=== PATIENT | male | born 1925 | race Caucasian/White ===

== ENCOUNTER 2016-07-19 16:58 | Inpatient (IN) | payer MEDICARE, OTHER ==
[~2016-07-19] VITALS: Ht 175.3 cm; Wt 68.9 kg
[2016-07-19] MEDS ORDERED: HALOPERIDOL LACTATE 5 MG/1 ML VIAL IM ONE (17:30)
[2016-07-19] MEDS ORDERED: LORAZEPAM 2 MG/1 ML VIAL IM ONE (17:30)
[2016-07-19] MEDS ORDERED: diphenhydrAMINE 50 MG/1 ML VIAL IM ONE (17:30)
--- NOTE | 2016-07-19 17:32 | NUR ---
PT IS AGGRIVATED UP ON ARRIVAL, AND BECOMING AGITATED W/ CARE AWARE.
--- NOTE | 2016-07-19 17:33 | NUR ---
SECURITY AT BEDSIDE FOR SAFETY, PT REFUSE TO GO BED.
[2016-07-19] MEDS ORDERED: HALOPERIDOL LACTATE 5 MG/1 ML VIAL ONE (17:41)
[2016-07-19] MEDS ORDERED: diphenhydrAMINE 50 MG/1 ML VIAL ONE (17:41)
[2016-07-19] MEDS ORDERED: LORAZEPAM 2 MG/1 ML VIAL ONE (17:41)
--- NOTE | 2016-07-19 17:42 | NUR ---
DR WALL AT THE BEDSIDE FOR EVAL AND EXAM.
[2016-07-19] MEDS ORDERED: PIPERACILLIN/TAZOBACTAM/D5W 50 ML IV ONE (17:58)
--- NOTE | 2016-07-19 18:18 | NUR ---
PT IS CALM AT THIS TIME, RESTING IN BED.
[2016-07-19] MEDS ORDERED: HYDR-552 PO (18:21)
[2016-07-19] MEDS ORDERED: ATOR10TA PO (18:21)
[2016-07-19] MEDS ORDERED: FAMO20TA8 PO (18:21)
[2016-07-19] MEDS ORDERED: METO-302 PO (18:21)
[2016-07-19] MEDS ORDERED: IPRA3AMP IH ×2 (18:21)
[2016-07-19] MEDS ORDERED: ACET-2154 PO (18:21)
[2016-07-19] MEDS ORDERED: INSU100V7 SQ (18:21)
[2016-07-19] MEDS ORDERED: BISA10SU8 RC (18:21)
[2016-07-19] MEDS ORDERED: FURO20TA4 PO (18:21)
[2016-07-19] MEDS ORDERED: QUET25TA PO (18:21)
[2016-07-19] MEDS ORDERED: LEVO75TA PO (18:21)
[2016-07-19] MEDS ORDERED: DOCU-170 PO (18:21)
[2016-07-19] MEDS ORDERED: DIPH50CA37 GT (18:33)
[2016-07-19] MEDS ORDERED: LACT10SO6 PO (18:33)
--- NOTE | 2016-07-19 18:47 | NUR ---
ОЛЬГА SINGH CALLED AND AWARE OF PT NEEDING PSYCH EVAL, ОЛЬГА STATES WILL COME TO EVALUATE PT AFTER MEDICAL CLEARANCE.
--- NOTE | 2016-07-19 18:51 | NUR ---
DINNER PROVIDED, PT HAS MODERATE APPETITE. 1 TO 1 SECURITY AT THE BEDSIDE FOR SAFETY.
[2016-07-19 18:53] LABS: BASOPHILS # (AUTO) 0.1 K/uL (0.0-0.2); BASOPHILS % (AUTO) 1.3 % (0.0-2.0); EOSINOPHILS # (AUTO) 0.2 K/uL (0.0-0.7); EOSINOPHILS % (AUTO) 3.1 % (0.0-7.0); HEMATOCRIT 40.6 % (40.0-50.0); HEMOGLOBIN 13.4 g/dL (14.0-18.0); LYMPHOCYTES % (AUTO) 12.3 % (20.5-51.5); MEAN CORPUSCULAR HEMOGLOBIN 30.3 uug (27.0-31.0); MEAN CORPUSCULAR HGB CONC 33 g/dL (32.0-37.0); MEAN CORPUSCULAR VOLUME 91.6 fL (82.0-92.0); MONOCYTES # (AUTO) 0.5 K/uL (0.1-1.30); MONOCYTES % (AUTO) 6.6 % (0.0-11.0); NEUTROPHILS # (AUTO) 6.1 K/uL (1.8-8.9); NEUTROPHILS % (AUTO) 76.7 % (38.5-71.5); PLATELET COUNT (AUTO) 283 K/uL (150-450); RED BLOOD CELL COUNT(AUTO) 4.44 MIL/uL (4.70-6.10); RED CELL DISTRIBUTION WIDTH 14.4 % (11.5-14.5); WHITE BLOOD COUNT (AUTO) 7.9 K/uL (4.0-11.2)
[2016-07-19] MEDS ORDERED: INSU100V9 (18:55)
[2016-07-19] MEDS ORDERED: BLOO-140 IN (18:55)
[2016-07-19] MEDS ORDERED: INSU100V28 (18:55)
[2016-07-19 19:01] LABS: CARBON DIOXIDE 32 mmol/L (21-32); CHLORIDE 101 mmol/L (98-107); POTASSIUM 5.3 mmol/L (3.5-5.1); SODIUM SERUM 137 mmol/L (136-145); UREA NITROGEN, BLOOD 30 mg/dL (7-18)
[2016-07-19 19:07] LABS: AMMONIA < 10 umol/L (11-32); CREATININE 1.5 mg/dL (0.6-1.3); GLUCOSE 317 mg/dL (74-106)
[2016-07-19 19:11] LABS: ETHANOL < 3 MG/DL (0-0)
[2016-07-19 19:18] LABS: ACETAMINOPHEN < 2.0 ug/mL (10-30); ALANINE AMINOTRANSFERASE 15 U/L (16-63); ALKALINE PHOSPHATASE 110 U/L (50-136); ASPARTATE AMINOTRANSFERASE 21 U/L (15-37); BILIRUBIN,DIRECT 0.2 mg/dL (0.0-0.2); BILIRUBIN,TOTAL 0.5 mg/dL (0.2-1.0)
[2016-07-19 19:20] LABS: THYROID STIMULATING HORMONE 5.392 mIU/mL (0.358-3.740)
[2016-07-19] MEDS ORDERED: IV NORMAL SALINE 500 ML IV ONE (19:26)
--- NOTE | 2016-07-19 19:35 | NUR ---
RECIEVED PATIENT IN BED SLEEPING WITH INFORMATION SERVICES CONSULTANT IN ROOM.
[2016-07-19] MEDS ORDERED: MAG HYDROX/AL HYDROX/SIMETH 30 ML LIQUID UDC PO PRN (21:00)
[2016-07-19] MEDS ORDERED: ACETAMINOPHEN 325 MG TABLET PO PRN ×2 (21:00→21:45)
[2016-07-19] MEDS ORDERED: MAGNESIUM HYDROXIDE 30 ML LIQUID UDC PO PRN (21:00)
[2016-07-19 21:36] VITALS: BP 150/74
[2016-07-19] MEDS ORDERED: HYDROCODONE/APAP 5-325MG TABLET PO PRN (21:45)
[2016-07-19] MEDS ORDERED: BISACODYL 10 MG SUPP.RECT RC PRN (21:45)
[2016-07-19] MEDS ORDERED: DEXTROSE 50% 50 ML DISP.SYRIN IV PRN (22:00)
[2016-07-19] MEDS ORDERED: Z GUARD REMEDY PASTE 57 GM TUBE TOP PRN (22:00)
[2016-07-19] MEDS: BLOOD SUGAR DIAGNOSTIC 1 EACH STRIP VI SCH (22:08)
[2016-07-19] MEDS: INSULIN REGULAR, HUMAN 300 UNITS/3 ML VIAL SQ PRN (22:11)
--- NOTE | 2016-07-19 23:33 | NUR ---
GPS: Admitted to unit earlier a 89 yr.old male under the care of in fair condition. Pt.is on a 72 hour hold for DTO/GD. Pt.was agitated,attempted to strike out at staff and other residents at [facility]. Pt.also was wandering into other residents rooms ,per hold. Pt.is alert to self only. Poor insight to present situation. Calm and cooperative at this time. On O2 inhalation via n/c for SOB mgmt due to COPD. In no acute resp.distress noted. Showered then placed in his room with sitter at bedside for safety. Fall precautions observed. Will continue to monitor.
--- NOTE | 2016-07-20 00:02 | NUR ---
GPS: PATIENT UNABLE TO SLEEP. RESTORIL 7.5 MG PO GIVEN. Addendum: 07/21/16 at 0459 by USAMA LANDRUM LVN RESTORIL 7.5 MG GIVEN ON 07/21/2016. NOT ON 07/20/2016.
[2016-07-20] MEDS ORDERED: Z GUARD REMEDY PASTE 57 GM TUBE TOP PRN (01:15)
[2016-07-20] MEDS: BLOOD SUGAR DIAGNOSTIC 1 EACH STRIP VI SCH ×4 (06:50→20:12)
[2016-07-20 07:30] VITALS: BP 164/85
[2016-07-20 07:53] LABS: BASOPHILS # (AUTO) 0.1 K/uL (0.0-0.2); BASOPHILS % (AUTO) 0.6 % (0.0-2.0); EOSINOPHILS # (AUTO) 0.3 K/uL (0.0-0.7); HEMATOCRIT 39.6 % (40.0-50.0); LYMPHOCYTES # (AUTO) 1.4 K/uL (0.8-4.8); LYMPHOCYTES % (AUTO) 16.1 % (20.5-51.5); MEAN CORPUSCULAR HEMOGLOBIN 30.2 uug (27.0-31.0); MEAN CORPUSCULAR HGB CONC 33 g/dL (32.0-37.0); MONOCYTES # (AUTO) 0.5 K/uL (0.1-1.30); NEUTROPHILS # (AUTO) 6.3 K/uL (1.8-8.9); NEUTROPHILS % (AUTO) 73.3 % (38.5-71.5); PLATELET COUNT (AUTO) 282 K/uL (150-450); RED BLOOD CELL COUNT(AUTO) 4.31 MIL/uL (4.70-6.10); RED CELL DISTRIBUTION WIDTH 14.5 % (11.5-14.5); WHITE BLOOD COUNT (AUTO) 8.6 K/uL (4.0-11.2)
[2016-07-20 08:24] LABS: BILIRUBIN,TOTAL 0.8 mg/dL (0.2-1.0); CALCIUM 8.3 mg/dL (8.5-10.1); MAGNESIUM 1.6 mg/dL (1.8-2.4); PHOSPHOROUS 3.3 mg/dL (2.5-4.9); POTASSIUM 4.6 mmol/L (3.5-5.1); TOTAL PROTEIN, SERUM 7.8 g/dL (6.4-8.2)
[2016-07-20 08:25] LABS: CREATININE 1.6 mg/dL (0.6-1.3)
[2016-07-20] MEDS: LEVOTHYROXINE SODIUM 75 MCG TABLET PO SCH (08:38)
[2016-07-20] MEDS: FAMOTIDINE 20 MG TABLET PO SCH (08:39)
[2016-07-20] MEDS: DOCUSATE SODIUM 100 MG CAPSULE PO SCH ×2 (08:39→17:12)
[2016-07-20] MEDS: Z GUARD REMEDY PASTE 57 GM TUBE TOP SCH ×2 (08:58→20:12)
[2016-07-20] MEDS ORDERED: Z GUARD REMEDY PASTE 57 GM TUBE TOP SCH (09:00)
[2016-07-20] MEDS: INSULIN DETEMIR 300 UNIT/3 ML CARTRIDGE SQ SCH (09:01)
[2016-07-20] MEDS: INSULIN REGULAR, HUMAN 300 UNIT/3 ML VIAL SQ PRN ×2 (12:08→17:46)
[2016-07-20 12:25] VITALS: BP 128/63
--- NOTE | 2016-07-20 12:56 | NUR ---
Initial discharge instructions: The patient resides at [facility] [[address] [place] [address] ]. Spoke with Daksha at the facility who stated that they will accept the patient back when stable. Spoke with the patient's family [Cheng-son /Christel ] who would like for the patient to return to the facility upon discharge. SS will soeak with patient, family, and MD regarding most appropriate discharge plan. SS will form a safe and proper discharge.
[2016-07-20] MEDS: LORAZEPAM 1 MG TABLET PO PRN ×2 (14:28→20:59)
[2016-07-20] MEDS ORDERED: MAGNESIUM OXIDE 400 MG TABLET PO ONE (14:45)
[2016-07-20 16:00] VITALS: BP 108/62
[2016-07-20] MEDS: QUETIAPINE FUMARATE 25 MG TABLET PO SCH (17:12)
--- NOTE | 2016-07-20 19:46 | NUR ---
Last note entered on 07/20/16 @ 19:27 was done in error. Addendum: 07/20/16 at 1947 by JORDAN WILLAMS REC Amended: Links added.
--- NOTE | 2016-07-20 19:55 | NUR ---
GPS/RN- Dr Mijares current provider for patient outside of Hospital. Dr Dela Cruz informed. spoke with providers, patient to continue under Dr Mijares. Dr Dela Cruz aware.
[2016-07-20 20:00] VITALS: BP 144/78
[2016-07-20] MEDS: ATORVASTATIN 10 MG TABLET PO SCH (20:11)
--- NOTE | 2016-07-20 21:05 | NUR ---
GPS:PATIENT YELLING STATED I WANT GO HOME. ATIVAN 0.25 MG PO GIVEN FOR AGITATION.CONTINUE ON 1:1 SITTER @ BEDSIDE FOR SAFETY.
--- NOTE | 2016-07-20 22:04 | NUR ---
GPS: PATIENT IS CALM NOW. PRN EFFECTIVE.
[2016-07-21] MEDS: TEMAZEPAM 7.5 MG CAPSULE PO PRN ×2 (00:01→20:28)
[2016-07-21] MEDS: LEVOTHYROXINE SODIUM 75 MCG TABLET PO SCH (06:10)
--- NOTE | 2016-07-21 06:58 | NUR ---
GPS: REMAIN UNCOOPERATIVE WITH CARE.COMPLIANT WITH MEDS.BLOOD SUGAR 171 MG/DL THIS MORNING.SLEPT 6:30 HRS THROUGH THE NIGHT. CONTINUE ON 1:1 SITTER @ BEDSIDE FOR SAFETY.CONTINUE PLAN OF CARE.
[2016-07-21] MEDS: BLOOD SUGAR DIAGNOSTIC 1 EACH STRIP VI SCH ×4 (07:00→20:03)
[2016-07-21 07:30] VITALS: BP 151/85
[2016-07-21] MEDS: QUETIAPINE FUMARATE 25 MG TABLET PO SCH ×2 (08:11→17:25)
[2016-07-21] MEDS: DOCUSATE SODIUM 100 MG CAPSULE PO SCH ×2 (08:11→17:24)
[2016-07-21] MEDS: FAMOTIDINE 20 MG TABLET PO SCH (08:11)
[2016-07-21] MEDS: INSULIN DETEMIR 300 UNIT/3 ML CARTRIDGE SQ SCH (08:19)
[2016-07-21] MEDS: INSULIN REGULAR, HUMAN 300 UNIT/3 ML VIAL SQ PRN ×2 (08:19→12:22)
[2016-07-21] MEDS: Z GUARD REMEDY PASTE 57 GM TUBE TOP SCH ×2 (08:25→20:03)
[2016-07-21] MEDS ORDERED: LORAZEPAM 1 MG TABLET PO ONE (13:45)
[2016-07-21 15:39] LABS: ALBUMIN 2.8 g/dL (3.4-5.0); BILIRUBIN,TOTAL 0.5 mg/dL (0.2-1.0); MAGNESIUM 1.8 mg/dL (1.8-2.4); PHOSPHOROUS 3.2 mg/dL (2.5-4.9); POTASSIUM 5.1 mmol/L (3.5-5.1); TOTAL PROTEIN, SERUM 7.4 g/dL (6.4-8.2)
[2016-07-21 15:56] LABS: CREATININE 1.6 mg/dL (0.6-1.3)
[2016-07-21 16:00] VITALS: BP 130/67
[2016-07-21 16:56] LABS: EOSINOPHILS # (AUTO) 0.4 K/uL (0.0-0.7); HEMATOCRIT 39.9 % (39-51); HEMOGLOBIN 13.1 G/DL (13.5-17.5); LYMPHOCYTES # (AUTO) 1.4 K/uL (0.8-4.8); MEAN CORPUSCULAR HEMOGLOBIN 30.6 UUG (26.0-33.0); MEAN CORPUSCULAR HGB CONC 33 g/dL (31.0-36.0); MEAN CORPUSCULAR VOLUME 92.8 FL (80-96); MONOCYTES # (AUTO) 0.5 K/uL (0.1-1.30); NEUTROPHILS # (AUTO) 5.3 K/uL (1.8-8.9); RED CELL DISTRIBUTION WIDTH 14.9 % (11.5-15.0); WHITE BLOOD COUNT (AUTO) 7.8 K/UL (4.3-11.0)
[2016-07-21 16:57] LABS: BASOPHILS % (AUTO) 0.4 % (0.0-2.0); EOSINOPHILS % (AUTO) 4.9 % (0.0-7.0); LYMPHOCYTES % (AUTO) 18.7 % (20.5-51.5); MONOCYTES % (AUTO) 7.1 % (0.0-11.0); NEUTROPHILS % (AUTO) 68.9 % (43.0-81.0); PLATELET COUNT (AUTO) 289 K/UL (150-450)
[2016-07-21] MEDS: LORAZEPAM 1 MG TABLET PO PRN (18:04)
[2016-07-21 20:00] VITALS: BP 116/62
[2016-07-21] MEDS: ATORVASTATIN 10 MG TABLET PO SCH (20:02)
[2016-07-21] MEDS: INSULIN REGULAR, HUMAN 300 UNITS/3 ML VIAL SQ PRN (20:27)
[2016-07-21] MEDS ORDERED: GABAPENTIN 100 MG CAPSULE PO SCH (21:00)
[2016-07-22] MEDS: QUETIAPINE FUMARATE 25 MG TABLET PO PRN (00:42)
--- NOTE | 2016-07-22 00:42 | NUR ---
GPS: Pt.is awake at this time. Angry,agitated and yelling. Confused and disoriented. Unable to be re-directed. Seroquel 12.5mg given PO. Will monitor effectiveness. Safe environment provided. Denies need to go to the bathroom. Diaper was dry at this time.
--- NOTE | 2016-07-22 03:59 | NUR ---
GPS: Pt.continues to yell/scream intermittently. Confused,disoriented. easily agitated when approached. Demanding staff to take him home at this time. Constant re-direction provided. Also trying to get out of bed numerous times. Poor safety awareness. 1:1 sitter for safety. Will continue to monitor. Denies any pain when asked.
[2016-07-22] MEDS: LEVOTHYROXINE SODIUM 75 MCG TABLET PO SCH (06:11)
[2016-07-22] MEDS: BLOOD SUGAR DIAGNOSTIC 1 EACH STRIP VI SCH ×4 (06:37→20:15)
[2016-07-22 07:18] LABS: ALBUMIN 2.9 g/dL (3.4-5.0); BILIRUBIN,TOTAL 0.7 mg/dL (0.2-1.0); CALCIUM 8.8 mg/dL (8.5-10.1); MAGNESIUM 1.6 mg/dL (1.8-2.4); PHOSPHOROUS 3.6 mg/dL (2.5-4.9); POTASSIUM 4.9 mmol/L (3.5-5.1); TOTAL PROTEIN, SERUM 7.2 g/dL (6.4-8.2)
[2016-07-22 07:19] LABS: CREATININE 1.9 mg/dL (0.6-1.3)
[2016-07-22 07:30] VITALS: BP 130/79
[2016-07-22 07:30] LABS: HEMATOCRIT 37.9 % (40.0-50.0); HEMOGLOBIN 12.6 g/dL (14.0-18.0); MEAN CORPUSCULAR HEMOGLOBIN 30.8 uug (27.0-31.0); MEAN CORPUSCULAR HGB CONC 33 g/dL (32.0-37.0); MEAN CORPUSCULAR VOLUME 92.7 fL (82.0-92.0); PLATELET COUNT (AUTO) 239 K/uL (150-450); RED BLOOD CELL COUNT(AUTO) 4.09 MIL/uL (4.70-6.10); RED CELL DISTRIBUTION WIDTH 14.4 % (11.5-14.5); WHITE BLOOD COUNT (AUTO) 8.8 K/uL (4.0-11.2)
[2016-07-22] MEDS: DOCUSATE SODIUM 100 MG CAPSULE PO SCH ×2 (08:17→17:26)
[2016-07-22] MEDS: FAMOTIDINE 20 MG TABLET PO SCH (08:18)
[2016-07-22] MEDS: QUETIAPINE FUMARATE 25 MG TABLET PO SCH ×3 (08:18→17:26)
[2016-07-22] MEDS: INSULIN DETEMIR 300 UNIT/3 ML CARTRIDGE SQ SCH (08:25)
[2016-07-22] MEDS: INSULIN REGULAR, HUMAN 300 UNIT/3 ML VIAL SQ PRN ×2 (08:27→17:26)
[2016-07-22] MEDS: Z GUARD REMEDY PASTE 57 GM TUBE TOP SCH ×2 (08:31→20:18)
[2016-07-22 11:17] LABS: BASOPHILS % (AUTO) 0.4 % (0.0-2.0); EOSINOPHILS % (AUTO) 3.4 % (0.0-7.0); LYMPHOCYTES # (AUTO) 1.2 K/uL (0.8-4.8); LYMPHOCYTES % (AUTO) 13.9 % (20.5-51.5); MONOCYTES % (AUTO) 6.3 % (0.0-11.0); NEUTROPHILS # (AUTO) 6.7 K/uL (1.8-8.9)
[2016-07-22 11:18] LABS: EOSINOPHILS # (AUTO) 0.3 K/uL (0.0-0.7); MONOCYTES # (AUTO) 0.6 K/uL (0.1-1.30)
[2016-07-22] MEDS ORDERED: MAGNESIUM OXIDE 400 MG TABLET PO ONE (14:00)
[2016-07-22] MEDS: GABAPENTIN 100 MG CAPSULE PO SCH ×2 (14:07→17:26)
[2016-07-22 15:43] VITALS: BP 131/60
[2016-07-22 20:09] VITALS: BP 130/59
[2016-07-22 20:27] LABS: *BILIRUBIN,URIN NEGATIVE (NEGATIVE); *BLOOD, URINE Trace-lysed (NEGATIVE); *COLOR,URINE YELLOW (YELLOW); *KETONES,URINE NEGATIVE (NEGATIVE); *PROTEIN,URINE TRACE (NEGATIVE); *UROBILINOGEN,URINE 0.2 E.U./dl (NORMAL); LEUKOCYTE ESTERASE ,URINE 1+ (NEGATIVE); UGLUCOSE NEGATIVE (NEGATIVE)
[2016-07-22] MEDS: ATORVASTATIN 10 MG TABLET PO SCH (20:27)
[2016-07-22 20:52] LABS: *URINE TOTAL PROTEIN RANDOM 20.8 mg/dL (<150/24HR)
[2016-07-22 21:09] LABS: *CLARITY,URINE HAZY (CLEAR); NITRITE, URINE POSITIVE (NEGATIVE)
[2016-07-22 21:47] LABS: BACTERIA,URINE MODERATE /HPF (NONE SEEN); RBC,URINE 0-3 /HPF (0-3); SQUAMOUS EPITHELIAL CELL,UR MODERATE /HPF (NONE SEEN)
[2016-07-22] MEDS: TEMAZEPAM 7.5 MG CAPSULE PO PRN (22:10)
[2016-07-23] MEDS: LEVOTHYROXINE SODIUM 88 MCG TABLET PO SCH (06:25)
[2016-07-23 06:30] LABS: ALBUMIN 2.8 g/dL (3.4-5.0); BILIRUBIN,TOTAL 0.7 mg/dL (0.2-1.0); CALCIUM 8.6 mg/dL (8.5-10.1); MAGNESIUM 1.9 mg/dL (1.8-2.4); PHOSPHOROUS 3.6 mg/dL (2.5-4.9); POTASSIUM 4.4 mmol/L (3.5-5.1); TOTAL PROTEIN, SERUM 7.2 g/dL (6.4-8.2)
[2016-07-23] MEDS: BLOOD SUGAR DIAGNOSTIC 1 EACH STRIP VI SCH ×4 (06:39→21:00)
[2016-07-23 06:41] LABS: CREATININE 1.7 mg/dL (0.6-1.3)
[2016-07-23 06:55] LABS: HEMATOCRIT 38.3 % (40.0-50.0); HEMOGLOBIN 12.4 g/dL (14.0-18.0); MEAN CORPUSCULAR HEMOGLOBIN 30.3 uug (27.0-31.0); MEAN CORPUSCULAR HGB CONC 33 g/dL (32.0-37.0); MEAN CORPUSCULAR VOLUME 93.4 fL (82.0-92.0); PLATELET COUNT (AUTO) 270 K/uL (150-450); RED BLOOD CELL COUNT(AUTO) 4.11 MIL/uL (4.70-6.10); RED CELL DISTRIBUTION WIDTH 14.4 % (11.5-14.5); WHITE BLOOD COUNT (AUTO) 7.5 K/uL (4.0-11.2)
[2016-07-23] MEDS ORDERED: LEVOTHYROXINE SODIUM 75 MCG TABLET PO SCH (07:00)
[2016-07-23 07:30] VITALS: BP 143/67
[2016-07-23] MEDS: INSULIN REGULAR, HUMAN 300 UNIT/3 ML VIAL SQ PRN ×3 (07:50→18:54)
[2016-07-23] MEDS: QUETIAPINE FUMARATE 25 MG TABLET PO SCH ×3 (09:00→17:04)
[2016-07-23] MEDS: DOCUSATE SODIUM 100 MG CAPSULE PO SCH ×2 (09:00→17:04)
[2016-07-23] MEDS: GABAPENTIN 100 MG CAPSULE PO SCH ×3 (09:00→17:04)
[2016-07-23] MEDS: FAMOTIDINE 20 MG TABLET PO SCH (09:00)
[2016-07-23] MEDS: INSULIN DETEMIR 300 UNIT/3 ML CARTRIDGE SQ SCH (11:04)
[2016-07-23] MEDS: Z GUARD REMEDY PASTE 57 GM TUBE TOP SCH ×2 (11:07→20:59)
[2016-07-23 11:15] LABS: LYMPHOCYTES % (AUTO) 14.3 % (20.5-51.5); NEUTROPHILS % (AUTO) 73.3 % (38.5-71.5)
[2016-07-23 11:16] LABS: BASOPHILS % (AUTO) 0.6 % (0.0-2.0); MONOCYTES % (AUTO) 6.8 % (0.0-11.0)
[2016-07-23 16:00] VITALS: BP 109/70
--- NOTE | 2016-07-23 19:05 | NUR ---
PT REMAINS ON 1:1. PT IS CONFUSED, DISORIENTATED, NEEDS FREQUENT REDIRECTION. HELP 1700 INSULIN, DID NOT EAT DINNER.
[2016-07-23 20:00] VITALS: BP 140/70
[2016-07-23] MEDS: ATORVASTATIN 10 MG TABLET PO SCH (20:56)
[2016-07-24] MEDS: LEVOTHYROXINE SODIUM 88 MCG TABLET PO SCH (06:34)
[2016-07-24] MEDS: BLOOD SUGAR DIAGNOSTIC 1 EACH STRIP VI SCH ×4 (06:34→20:20)
[2016-07-24 07:30] VITALS: BP 136/68
[2016-07-24] MEDS: FAMOTIDINE 20 MG TABLET PO SCH (08:32)
[2016-07-24] MEDS: GABAPENTIN 100 MG CAPSULE PO SCH ×3 (08:32→17:10)
[2016-07-24] MEDS: QUETIAPINE FUMARATE 25 MG TABLET PO SCH ×3 (08:32→17:11)
[2016-07-24] MEDS: DOCUSATE SODIUM 100 MG CAPSULE PO SCH ×2 (08:32→17:10)
[2016-07-24] MEDS: INSULIN DETEMIR 300 UNIT/3 ML CARTRIDGE SQ SCH (08:33)
[2016-07-24] MEDS: Z GUARD REMEDY PASTE 57 GM TUBE TOP SCH ×2 (08:34→20:21)
[2016-07-24] MEDS: INSULIN REGULAR, HUMAN 300 UNIT/3 ML VIAL SQ PRN (17:12)
[2016-07-24 17:20] VITALS: BP 143/78
[2016-07-24] MEDS: ATORVASTATIN 10 MG TABLET PO SCH (20:14)
[2016-07-24] MEDS: QUETIAPINE FUMARATE 25 MG TABLET PO PRN (20:15)
[2016-07-24] MEDS: INSULIN REGULAR, HUMAN 300 UNITS/3 ML VIAL SQ PRN (20:36)
--- NOTE | 2016-07-24 21:12 | NUR ---
PATIENT RECEIVED IN BED AWAKE. PATIENT ALERT/ORIENTED X2, PATIENT IS EASILY AGITATED, EASILY IRRITABLE PATIENT IS UNPREDICTABLE. PATIENT REQUIRES FREQUENT REDIRECTION AND PROMPTING, HAS PERIODS OF YELLING WHEN NEEDS ARE NOT MET WANTS INSTANT GRATIFICATION. NO AGGRESSIVE OR COMBATIVE BEHAVIOR NOTED, HOWEVER DURING PATIENT CARE IS KNOWN TO STRIKE OUT. POOR INSIGHT, POOR JUDGEMENT, CONTINUE WITH CURRENT TREATMENT PLAN. HS BLOOD SUGAR 235MG/DL INSULIN GIVEN PER SLIDING SCALE 4 UNITS, PATIENT COMPLAINT WITH HS MEDICATION. BED IN LOWEST POSITION, BED LOCKED, AND BED ALARM ON WHILE IN BED. PATIENT DENIES PAIN AT THIS TIME, WILL CONTINUE TO MONITOR, NO FACIAL GRIMACING NOTED. PATIENT REMAINS WITH A 1:1 SITTER FOR SAFETY.
[2016-07-24] MEDS: TEMAZEPAM 7.5 MG CAPSULE PO PRN (22:13)
[2016-07-24 22:36] VITALS: BP 116/61
[2016-07-25] MEDS: LEVOTHYROXINE SODIUM 88 MCG TABLET PO SCH (06:28)
[2016-07-25] MEDS: BLOOD SUGAR DIAGNOSTIC 1 EACH STRIP VI SCH ×4 (06:38→20:10)
[2016-07-25 08:00] VITALS: BP 98/52
[2016-07-25] MEDS: DOCUSATE SODIUM 100 MG CAPSULE PO SCH ×2 (08:06→16:08)
[2016-07-25] MEDS: QUETIAPINE FUMARATE 25 MG TABLET PO SCH ×3 (08:06→16:08)
[2016-07-25] MEDS: FAMOTIDINE 20 MG TABLET PO SCH (08:06)
[2016-07-25 08:07] LABS: CALCIUM 8.7 mg/dL (8.5-10.1); MAGNESIUM 2.3 mg/dL (1.8-2.4); PHOSPHOROUS 3.3 mg/dL (2.5-4.9); POTASSIUM 5.5 mmol/L (3.5-5.1)
[2016-07-25] MEDS: GABAPENTIN 100 MG CAPSULE PO SCH ×2 (08:07→12:08)
[2016-07-25] MEDS: INSULIN DETEMIR 300 UNIT/3 ML CARTRIDGE SQ SCH (08:08)
[2016-07-25] MEDS: Z GUARD REMEDY PASTE 57 GM TUBE TOP SCH ×2 (08:09→20:36)
[2016-07-25 08:12] LABS: CREATININE 1.7 mg/dL (0.6-1.3)
[2016-07-25 08:41] LABS: HEMATOCRIT 41.2 % (40.0-50.0); HEMOGLOBIN 13.1 g/dL (14.0-18.0); MEAN CORPUSCULAR HEMOGLOBIN 29.7 uug (27.0-31.0); MEAN CORPUSCULAR HGB CONC 32 g/dL (32.0-37.0); MEAN CORPUSCULAR VOLUME 93.4 fL (82.0-92.0); PLATELET COUNT (AUTO) 269 K/uL (150-450); RED BLOOD CELL COUNT(AUTO) 4.42 MIL/uL (4.70-6.10); RED CELL DISTRIBUTION WIDTH 14.4 % (11.5-14.5)
[2016-07-25 08:58] LABS: WHITE BLOOD COUNT (AUTO) 9.7 K/uL (4.0-11.2)
[2016-07-25 11:07] LABS: BASOPHILS % (MANUAL) 3 % (0-2); EOSINOPHILS % (MANUAL) 3 % (0-8); LYMPHOCYTES % (MANUAL) 16 % (20-40); METAMYELOCYTES % 1 % (0-1); MONOCYTES % (MANUAL) 6 % (2-10); NEUTROPHILS % (MANUAL) 71 % (42-75); PLATELET ESTIMATE ADEQUATE
[2016-07-25 11:08] LABS: ANISOCYTOSIS 1+
[2016-07-25] MEDS: INSULIN REGULAR, HUMAN 300 UNITS/3 ML VIAL SQ PRN ×2 (12:07→20:25)
[2016-07-25] MEDS: GABAPENTIN 300 MG CAPSULE PO SCH ×2 (12:18→16:08)
[2016-07-25] MEDS ORDERED: GABAPENTIN 100 MG CAPSULE PO SCH (13:00)
[2016-07-25] MEDS: LORAZEPAM 1 MG TABLET PO PRN (14:00)
[2016-07-25] MEDS: INSULIN REGULAR, HUMAN 300 UNIT/3 ML VIAL SQ PRN (16:15)
[2016-07-25 16:41] VITALS: BP 124/63
[2016-07-25] MEDS: ATORVASTATIN 10 MG TABLET PO SCH (20:00)
[2016-07-25] MEDS: QUETIAPINE FUMARATE 25 MG TABLET PO PRN (20:00)
[2016-07-25 20:15] VITALS: BP 136/60
--- NOTE | 2016-07-25 21:24 | NUR ---
PATIENT RECEIVED IN BED AWAKE. PATIENT ALERT/ORIENTED X2, PATIENT IS EASILY AGITATED, EASILY IRRITABLE PATIENT IS UNPREDICATABLE. PATIENT REQUIRES FREQUENT REDIRECTION AND PROMPTING, HAS PERIODS OF YELLING WHEN NEEDS ARE NOT MET WANTS INSTANT GRATIFICATION. NO AGGRESSIVE OR COMBATIVE BEHAVIOR NOTED, HOWEVER DURING PATIENT CARE IS KNOWN TO STRIKE OUT. POOR INSIGHT, POOR JUDGEMENT, CONTINUE WITH CURRENT TREATMENT PLAN. HS BLOOD SUGAR 229 MG/DL INSULIN GIVEN PER SLIDING SCALE 4 UNITS, PATIENT COMPLAINT WITH HS MEDICATION. BED IN LOWEST POSITION, BED LOCKED, AND BED ALARM ON WHILE IN BED. PATIENT DENIES PAIN AT THIS TIME, WILL CONTINUE TO MONITOR, NO FACIAL GRIMACING NOTED. PATIENT REMAINS WITH A 1:1 SITTER FOR SAFETY.
[2016-07-25] MEDS: TEMAZEPAM 7.5 MG CAPSULE PO PRN (22:06)
[2016-07-26 06:06] LABS: A/G RATIO 0.9 (0.7-1.7); ALPHA-1-GLOBULIN 0.2 g/dL (0.0-0.4); ALPHA-2-GLOBULIN 0.8 g/dL (0.4-1.0); BETA GLOBULIN 0.8 g/dL (0.7-1.3); GAMMA GLOBULIN 1.6 g/dL (0.4-1.8); GLOBULIN, TOTAL 3.4 g/dL (2.2-3.9); M-SPIKE Not Observed g/dL (Not Observed)
[2016-07-26] MEDS: BLOOD SUGAR DIAGNOSTIC 1 EACH STRIP VI SCH ×4 (06:39→21:04)
[2016-07-26] MEDS: LEVOTHYROXINE SODIUM 88 MCG TABLET PO SCH (06:39)
[2016-07-26 07:30] VITALS: BP 107/65
[2016-07-26] MEDS: DOCUSATE SODIUM 100 MG CAPSULE PO SCH ×2 (09:00→16:42)
[2016-07-26] MEDS: GABAPENTIN 300 MG CAPSULE PO SCH ×2 (09:00→13:00)
[2016-07-26] MEDS: FAMOTIDINE 20 MG TABLET PO SCH (09:00)
[2016-07-26] MEDS: QUETIAPINE FUMARATE 25 MG TABLET PO SCH ×2 (09:00→13:00)
[2016-07-26] MEDS: INSULIN DETEMIR 300 UNIT/3 ML CARTRIDGE SQ SCH (09:00)
[2016-07-26] MEDS: Z GUARD REMEDY PASTE 57 GM TUBE TOP SCH ×2 (10:18→21:03)
[2016-07-26 12:08] LABS: VIT D, 25-HYDROXY 22.6 ng/mL (30.0-100.0)
[2016-07-26 14:12] LABS: PTH, INTACT 85 pg/mL (15-65)
[2016-07-26] MEDS: GABAPENTIN 100 MG CAPSULE PO SCH ×2 (16:42→21:03)
[2016-07-26 16:48] VITALS: BP 134/73
[2016-07-26] MEDS ORDERED: QUETIAPINE FUMARATE 25 MG TABLET PO SCH (17:00)
[2016-07-26] MEDS ORDERED: GABAPENTIN 300 MG CAPSULE PO SCH (17:00)
[2016-07-26 20:33] VITALS: BP 153/73
[2016-07-26] MEDS: ATORVASTATIN 10 MG TABLET PO SCH (21:03)
[2016-07-26] MEDS: OLANZAPINE 2.5 MG TABLET PO SCH (21:03)
[2016-07-26] MEDS: INSULIN REGULAR, HUMAN 300 UNITS/3 ML VIAL SQ PRN (21:09)
[2016-07-27] MEDS: BLOOD SUGAR DIAGNOSTIC 1 EACH STRIP VI SCH ×4 (06:30→20:05)
[2016-07-27] MEDS: LEVOTHYROXINE SODIUM 88 MCG TABLET PO SCH (06:30)
[2016-07-27 07:30] VITALS: BP 155/87
[2016-07-27] MEDS: DOCUSATE SODIUM 100 MG CAPSULE PO SCH ×2 (09:11→17:31)
[2016-07-27] MEDS: METOPROLOL TARTRATE 25 MG TABLET PO SCH ×2 (09:11→20:07)
[2016-07-27] MEDS: FAMOTIDINE 20 MG TABLET PO SCH (09:11)
[2016-07-27] MEDS: GABAPENTIN 100 MG CAPSULE PO SCH ×2 (09:11→20:06)
[2016-07-27] MEDS: Z GUARD REMEDY PASTE 57 GM TUBE TOP SCH ×2 (09:12→20:08)
[2016-07-27] MEDS: INSULIN DETEMIR 300 UNIT/3 ML CARTRIDGE SQ SCH (09:47)
[2016-07-27] MEDS: INSULIN REGULAR, HUMAN 300 UNIT/3 ML VIAL SQ PRN ×2 (09:48→12:16)
[2016-07-27 12:20] LABS: CALCITRIOL VIT D,1,25 DIHYDROX 14.1 pg/mL (19.9-79.3)
--- NOTE | 2016-07-27 14:21 | NUR ---
ECHO: PT REFUSED ECHOCARDIOGRAM. EXPLAINED BENEFITS, STILL REFUSED.
[2016-07-27 16:00] VITALS: BP 131/60
[2016-07-27] MEDS: ATORVASTATIN 10 MG TABLET PO SCH (20:05)
[2016-07-27] MEDS: OLANZAPINE 2.5 MG TABLET PO SCH (20:07)
[2016-07-27] MEDS: INSULIN REGULAR, HUMAN 300 UNITS/3 ML VIAL SQ PRN (20:11)
[2016-07-27 20:27] VITALS: BP 135/60
[2016-07-27] MEDS: TEMAZEPAM 7.5 MG CAPSULE PO PRN (22:20)
[2016-07-28 01:33] LABS: *BILIRUBIN,URIN NEGATIVE (NEGATIVE); *BLOOD, URINE Trace-intact (NEGATIVE); *CLARITY,URINE SLIGHTLY CLOUDY (CLEAR); *COLOR,URINE YELLOW (YELLOW); *KETONES,URINE NEGATIVE (NEGATIVE); *PROTEIN,URINE 2+ (NEGATIVE); *UROBILINOGEN,URINE 0.2 E.U./dl (NORMAL); PH,URINE 6.5 (5.0-8.0); UGLUCOSE TRACE (NEGATIVE)
[2016-07-28 01:39] LABS: LEUKOCYTE ESTERASE ,URINE TRACE (NEGATIVE); NITRITE, URINE POSITIVE (NEGATIVE)
[2016-07-28 01:41] LABS: BACTERIA,URINE MANY /HPF (NONE SEEN); RBC,URINE 0-3 /HPF (0-3); SQUAMOUS EPITHELIAL CELL,UR FEW /HPF (NONE SEEN)
[2016-07-28] MEDS: LORAZEPAM 1 MG TABLET PO PRN ×3 (01:41→15:35)
--- NOTE | 2016-07-28 01:49 | NUR ---
GPS: Pt.is awake,anxious and restless. Reality re-orientation provided. Unable to be re-directed. Ativan 0.25mg given PO.Will monitor effectiveness of med. Cleansed after each episodes of incontinence. Denied pain/discomfort at this time.
[2016-07-28] MEDS: LEVOTHYROXINE SODIUM 88 MCG TABLET PO SCH (06:35)
[2016-07-28] MEDS: BLOOD SUGAR DIAGNOSTIC 1 EACH STRIP VI SCH ×4 (06:35→20:05)
[2016-07-28 07:30] VITALS: BP 151/60
[2016-07-28] MEDS: METOPROLOL TARTRATE 25 MG TABLET PO SCH ×2 (08:25→20:02)
[2016-07-28] MEDS: FAMOTIDINE 20 MG TABLET PO SCH (08:25)
[2016-07-28] MEDS: DOCUSATE SODIUM 100 MG CAPSULE PO SCH ×2 (08:25→17:42)
[2016-07-28 08:30] LABS: BASOPHILS # (AUTO) 0.1 K/uL (0.0-0.2); BASOPHILS % (AUTO) 0.7 % (0.0-2.0); EOSINOPHILS # (AUTO) 0.2 K/uL (0.0-0.7); HEMATOCRIT 42.3 % (40.0-50.0); HEMOGLOBIN 13.6 g/dL (14.0-18.0); LYMPHOCYTES % (AUTO) 12.6 % (20.5-51.5); MEAN CORPUSCULAR HEMOGLOBIN 29.6 uug (27.0-31.0); MEAN CORPUSCULAR HGB CONC 32 g/dL (32.0-37.0); MEAN CORPUSCULAR VOLUME 92.4 fL (82.0-92.0); MONOCYTES # (AUTO) 0.5 K/uL (0.1-1.30); MONOCYTES % (AUTO) 5.7 % (0.0-11.0); NEUTROPHILS # (AUTO) 6.3 K/uL (1.8-8.9); PLATELET COUNT (AUTO) 303 K/uL (150-450); RED BLOOD CELL COUNT(AUTO) 4.58 MIL/uL (4.70-6.10); RED CELL DISTRIBUTION WIDTH 14.4 % (11.5-14.5); WHITE BLOOD COUNT (AUTO) 8.1 K/uL (4.0-11.2)
[2016-07-28 08:42] LABS: ALBUMIN 2.9 g/dL (3.4-5.0); BILIRUBIN,TOTAL 0.6 mg/dL (0.2-1.0); CALCIUM 8.8 mg/dL (8.5-10.1); CREATININE 1.6 mg/dL (0.6-1.3); PHOSPHOROUS 2.9 mg/dL (2.5-4.9); POTASSIUM 4.2 mmol/L (3.5-5.1); TOTAL PROTEIN, SERUM 7.7 g/dL (6.4-8.2)
[2016-07-28] MEDS: OLANZAPINE 2.5 MG TABLET PO SCH ×3 (08:44→20:01)
[2016-07-28] MEDS: INSULIN DETEMIR 300 UNIT/3 ML CARTRIDGE SQ SCH (08:49)
[2016-07-28] MEDS ORDERED: GABAPENTIN 100 MG CAPSULE PO SCH (09:00)
[2016-07-28] MEDS: Z GUARD REMEDY PASTE 57 GM TUBE TOP SCH ×2 (10:06→20:05)
--- NOTE | 2016-07-28 10:30 | NUR ---
PAGED PELT INSPECTOR MD THROUGH SERVICE TO REPORT UA RESULTS.
[2016-07-28] MEDS: INSULIN REGULAR, HUMAN 300 UNIT/3 ML VIAL SQ PRN (12:20)
--- NOTE | 2016-07-28 13:23 | NUR ---
REPAGED VP [employer]OUNDATION MD THROUGH SERVICE TO REPORT UA RESULTS.
--- NOTE | 2016-07-28 16:53 | NUR ---
REPAGED GLOBAL MARKETING MANAGER MD THROUGH SERVICE. STILL AWAITING CALL BACK.
--- NOTE | 2016-07-28 17:00 | NUR ---
RE DISCHARGE: SPOKE WITH DR MORGAN, STATES PLEASE DISCHARGE PT AND ADMIT TO MS FOR UTI AND IV ABX. SPOKE WITH DR MUNOZ, PLEASE DC HOLD UPON DISCHARGE AND CONTINUE ALL MEDS. SPOKE WITH MARLON, CHARGE NURSE ON MED SURG FLOOR. "ALL BEDS ARE FULL AND WE DONT HAVE A BED FOR HIM". NOTIFIED JOHNNY, NURSING MIDDLE SCHOOL PROFESSIONAL. [facility] STATES SHE WILL CALL [facility] AND HAVE RAHONI CALL US SOON A BED IS AVAILABLE FOR TRANSFER. NOTIFIED DR MUNOZ AND DR MORGAN OF DELAY.
--- NOTE | 2016-07-28 18:45 | NUR ---
[facility] DIRECTOR SAYS PT CAN BE TRANSFERRED TO 224 AFTER SHIFT CHANGE. [facility] WILL CALL WHEN THEY ARE READY FOR REPORT.
[2016-07-28] MEDS: GABAPENTIN 100 MG CAPSULE PO SCH (20:01)
[2016-07-28] MEDS: ATORVASTATIN 10 MG TABLET PO SCH (20:01)
[2016-07-28] MEDS: INSULIN REGULAR, HUMAN 300 UNITS/3 ML VIAL SQ PRN (20:07)
[2016-07-28 20:11] VITALS: BP 135/68
--- NOTE | 2016-07-28 20:52 | NUR ---
Patient less agitated and redirectable,but hyper verbal, able to make needs known, compliant with hs meds, bed time snacks given, sitter at bedside, will continue to monitor closely.
--- NOTE | 2016-07-28 20:53 | NUR ---
PT TOOK ALL HS MEDS ORDERED, NOTIFIED [facility] CHARGE NURSE KATHLEEN WILHELM THAT PT IS READY TO BE TRANSFERRED TO 224, INDICATED IN REPORT, WAITING FOR ACCEPTING NURSE TO CALL FOR REPORT.
--- NOTE | 2016-07-28 21:20 | NUR ---
DETAILED REPORT GIVEN TO KATHLEEN CASTRO 2ND FL ACCEPTING NURSE.
--- NOTE | 2016-07-28 21:25 | NUR ---
PAGED DR MUNOZ TO CLARIFY VERBAL REPORT RECEIVED FROM DAY SHIFT CHARGE NURSE JOSE TO [place] 14DAY HOLD BUT TO CONTINUE ALL PSYCH MEDS, WAITING FOR CALL BACK.
--- NOTE | 2016-07-28 21:41 | NUR ---
DR MUNOZ CALLED BACK, ORDER TO DISCONTINUE 14D HOLD BUT CONTINUE ALL MEDS INCLUDING PRN OBTAINED AND CARRIED OUT.
--- NOTE | 2016-07-28 21:43 | NUR ---
PT DISCHARGED, TO 2ND FLOOR, DISCHARGE DISCHARGE PAPERS SIGNED AND WITNESSED BY 2 LIC. NURSES, ALL BELONGINGS SENT WITH PT TO 2ND FLOOR, INCLUDING NAIL CLIPPER BROUGHT IN TODAY BY PT'S SON.
[2016-07-28] MEDS ORDERED: INSU100I19 SQ (23:45)
[2016-07-28] MEDS ORDERED: LORA0.5T PO (23:45)
[2016-07-28] MEDS ORDERED: LEVO88TA5 PO (23:45)
[2016-07-28] MEDS ORDERED: OLAN2.5T22 PO (23:45)
[2016-07-28] MEDS ORDERED: TEMA7.5C2 PO (23:45)
[2016-07-28] MEDS ORDERED: GABA-532 PO ×2 (23:45)
[2016-07-28] MEDS ORDERED: OLANZAPINE PO (23:45)
[2016-07-28] MEDS ORDERED: LORA-258 PO (23:45)
[2016-07-29] MEDS ORDERED: CEFTRIAXONE 1 G VIAL ONE (00:36)
== END 2016-07-28 21:57 | disposition short-term general hospital (02) | DRG 885 ==
LOC: ER 17:04 → GPS 20:33
PROVIDERS: ADMIT Psychiatry & Neurology Psychosomatic Medicine; ATTEND Internal Medicine
DX: F29 Unspecified psychosis not due to a substance or known physiological condition (principal); F02.80 Dementia in other diseases classified elsewhere, unspecified severity, without behavioral disturbance, psychotic disturbance, mood disturbance, and anxiety; N17.9 Acute kidney failure, unspecified; N18.9 Chronic kidney disease, unspecified; E11.65 Type 2 diabetes mellitus with hyperglycemia; I50.32 Chronic diastolic (congestive) heart failure; I13.0 Hypertensive heart and chronic kidney disease with heart failure and stage 1 through stage 4 chronic kidney disease, or unspecified chronic kidney disease; I25.10 Atherosclerotic heart disease of native coronary artery without angina pectoris; J44.9 Chronic obstructive pulmonary disease, unspecified; E78.5 Hyperlipidemia, unspecified; E03.9 Hypothyroidism, unspecified; G30.9 Alzheimer's disease, unspecified; E11.22 Type 2 diabetes mellitus with diabetic chronic kidney disease; D64.9 Anemia, unspecified; M85.80 Other specified disorders of bone density and structure, unspecified site; I44.30 Unspecified atrioventricular block; I49.3 Ventricular premature depolarization; F01.50 Vascular dementia, unspecified severity, without behavioral disturbance, psychotic disturbance, mood disturbance, and anxiety
CPT/HCPCS: 36415; 70030-TC; 70450; 71010; 76770; 82306; 82652; 83735; 83970; 84100; 84155; 84156; 84165; 84300; 84443; 85025; 85730; 87077; 87086; 93005; 97001; A4663; G0480-TC; G6040-TC; J0696; J1200; J1630; J1815; J2060; J2543

== ENCOUNTER 2016-07-28 22:31 | Inpatient (IN) | payer MEDICARE, OTHER ==
[~2016-07-28] VITALS: Ht 172.7 cm; Wt 68.9 kg
--- NOTE | 2016-07-28 21:00 | NUR ---
PLACE A CALL TO DR VARGAS TO NOTIFY HIM ABOUT THE ADMISSION, WITH ORDER. Addendum: 07/29/16 at 0148 by CANDELARIO PERRY RN PLACE A CALL TO DR. KNUTSON TO NOTIFY HIM ABOUT THE ADMISSION WITH ORDER IN ERROR.
--- NOTE | 2016-07-28 21:40 | NUR ---
PATIENT ADMITTED FROM MHU UNDER THE CARE OF DR. VARGAS, VIA GERICHAIR, PATIENT AWAKE BUT FORGETFUL, WITH CONFUSION DUE TO HEALTH CONDITION, ACCOMPANIED BY SITTER, CONT ON 1;1 SITTER FOR SAFETY. NO SOB NO CHEST PAIN, ON OXYGEN 2LNC FOR SOB, CONT TO MONITOR.
[2016-07-28 21:45] VITALS: BP 147/64
[~2016-07-28 22:31] MED LIST: ACET-2154 PO; ATOR10TA PO; BISA10SU8 RC; BLOO-140 IN; DIPH50CA37 GT; DOCU-170 PO; FAMO20TA8 PO; FURO20TA4 PO; HYDR-552 PO; INSU100V28; INSU100V7 SQ; INSU100V9; IPRA3AMP IH; LACT10SO6 PO; LEVO75TA PO; METO-302 PO
--- NOTE | 2016-07-28 22:40 | NUR ---
PLACE A CALL TO DR. VARGAS TO NOTIFY HIM REGARDING HIS PATIENT ADMISSIONS, WITH ORDERS.
[2016-07-28] MEDS ORDERED: LORA0.5T PO (23:45)
[2016-07-28] MEDS ORDERED: LORA-258 PO (23:45)
[2016-07-28] MEDS ORDERED: LEVO88TA5 PO (23:45)
[2016-07-28] MEDS ORDERED: INSU100I19 SQ (23:45)
[2016-07-28] MEDS ORDERED: TEMA7.5C2 PO (23:45)
[2016-07-28] MEDS ORDERED: OLAN2.5T22 PO (23:45)
[2016-07-28] MEDS ORDERED: OLANZAPINE PO (23:45)
[2016-07-28] MEDS ORDERED: GABA-532 PO ×2 (23:45)
[2016-07-29] MEDS ORDERED: MAGNESIUM HYDROXIDE 30 ML LIQUID UDC PO PRN (00:15)
[2016-07-29] MEDS ORDERED: CEFTRIAXONE 1 G VIAL IV SCH (00:15)
[2016-07-29] MEDS ORDERED: MAG HYDROX/AL HYDROX/SIMETH 30 ML LIQUID UDC PO PRN (00:15)
[2016-07-29] MEDS ORDERED: Z GUARD REMEDY PASTE 57 GM TUBE TOP PRN (00:15)
[2016-07-29] MEDS ORDERED: DEXTROSE 50% 50 ML DISP.SYRIN IV PRN (00:15)
[2016-07-29] MEDS ORDERED: LORAZEPAM 0.5 MG TABLET PO PRN (04:15)
[2016-07-29] MEDS: HYDROCODONE/APAP 5-325MG TABLET PO PRN (04:22)
[2016-07-29] MEDS ORDERED: HYDROCODONE/APAP 5-325MG TABLET ONE (04:27)
[2016-07-29] MEDS ORDERED: LORAZEPAM 0.5 MG TABLET ONE (04:28)
[2016-07-29 05:48] VITALS: BP 134/72
[2016-07-29] MEDS: BLOOD SUGAR DIAGNOSTIC 1 EACH STRIP VI SCH ×4 (06:47→21:06)
--- NOTE | 2016-07-29 07:00 | NUR ---
PT IS LAYING IN BED COMFORTABLY. NO S/S OF RESPIRATORY DISTRESS NOTED. IV INTACT/PATENT. NO PAIN NOTED. ALL SAFETY NEEDS ARE MET. PT IS SLEEPING AND BEING AGITATED AT TIMES. PT REMOVES NC. REMINDED THE PT TO KEEP IT ON AT ALL TIMES.
[2016-07-29] MEDS ORDERED: ACETAMINOPHEN 325 MG TABLET PO PRN (08:15)
[2016-07-29] MEDS ORDERED: TEMAZEPAM 7.5 MG CAPSULE PO PRN (08:15)
[2016-07-29] MEDS ORDERED: HYDROCODONE/APAP 5-325MG TABLET PO PRN (08:15)
[2016-07-29] MEDS ORDERED: BISACODYL 10 MG SUPP.RECT RC PRN (08:15)
[2016-07-29] MEDS ORDERED: OLANZAPINE 2.5 MG TABLET PO PRN (08:30)
[2016-07-29] MEDS ORDERED: GABAPENTIN 100 MG CAPSULE PO SCH ×2 (09:00→21:00)
[2016-07-29] MEDS ORDERED: OLANZAPINE 2.5 MG TABLET PO SCH ×2 (09:00→21:00)
[2016-07-29] MEDS ORDERED: METOPROLOL SUCCINATE XL 25 MG TAB.SR.24H PO SCH (09:00)
[2016-07-29] MEDS: FAMOTIDINE 20 MG TABLET PO SCH (09:08)
[2016-07-29] MEDS: Z GUARD REMEDY PASTE 57 GM TUBE TOP SCH ×2 (09:09→21:05)
[2016-07-29] MEDS: DOCUSATE SODIUM 100 MG CAPSULE PO SCH ×2 (09:09→16:55)
[2016-07-29] MEDS: LEVOTHYROXINE SODIUM 88 MCG TABLET PO SCH (09:09)
[2016-07-29] MEDS: INSULIN DETEMIR 300 UNIT/3 ML CARTRIDGE SQ SCH (09:12)
[2016-07-29] MEDS: INSULIN REGULAR, HUMAN 300 UNIT/3 ML VIAL SQ PRN ×3 (09:18→16:53)
[2016-07-29] MEDS: METOPROLOL TARTRATE 25 MG TABLET PO SCH ×2 (09:45→20:17)
[2016-07-29] MEDS ORDERED: BLOOD SUGAR DIAGNOSTIC 1 EACH STRIP VI SCH (11:30)
--- NOTE | 2016-07-29 12:32 | NUR ---
WOUND CARE CONSULT: PT PRESENTS WITH LEFT ARM SKIN TEAR WHICH IS HEALING AND RASH TO BUTTOCKS/PERINEAL AREAS, PRESENT ON ADMISSION. RECOMMENDATIONS MADE FOR SKIN PROTECTION AND WOUND CARE. DISCUSSED WITH NURSING STAFF. PT TO BE PLACED ON FIRST STEP MATTRESS (PREVIOUSLY ORDERED). PT HAS SITTER AT BEDSIDE. PT IS INCONTINENT. SKIN TO BE KEPT CLEAN AND DRY. MD IN AGREEMENT WITH PLAN OF CARE. Addendum: 07/29/16 at 1234 by JO ANN MCPHERSON RN Amended: Links added.
--- NOTE | 2016-07-29 12:39 | NUR ---
CLINICAL PHARMACY NOTE(REVIEW OF [facility] MEDICATIONS) History of Present Illness Mr. Victoria is an 89 yo gentleman from [facility] (post hospitalization at [facility]), admitted initially to the MHU on 07/19/16 and placed on a hold due to agitation, aggression towards residents, unable to be redirected by nursing. Followed by Dr. Hernández, Psychiatry as outpatient. Patient was reviewed by cardiology due to changes on EKG including first degree AV block, RBBB and LAFB as well as frequent PVCs without reported CP, SOB or palpitations. EKG QTc is > 450. Restarted on MTP, no contraindications to antipsychotic meds per cardio. Patient's AMS continued, noted worsening renal function, urine + for nitrites, LE, pyuria, growing > 100K GNRs on micro, transferred to medical floor for further treatment with IV abx and supportive care All medications review as of today high risk medication include, gabapentin may cause ataxia, impaired psychomotor function, syncope, additional falls. Lorazepam in general, all benzodiazepines increase risk of cognitive impairment, delirium, falls. Olanzapine increased risk of cerebrovascular accident (stroke) and greater rate of cognitive decline and mortality in persons with dementia. Patient does have a history of psychosis therefore no recommendation regarding high risk medications at this time.
[2016-07-29] MEDS: CLOTRIMAZOLE 1% CREAM 30 GM TUBE TOP SCH ×2 (13:20→16:54)
--- NOTE | 2016-07-29 14:24 | NUR ---
PT IS TOO SEDATED/SLEEPING. DOES NOT WANT TO EAT, REFUSES INSULIN. WILL CONTINUE TO MONITOR BLOOD SUGAR.
--- NOTE | 2016-07-29 16:36 | NUR ---
Discharge Plan: The patient's family requested for him to be discharged to [facility] [ ; [address] [place] [address]]. Pascale spoke to Richi, active directory administrator from [facility], and he confirmed that they will admit the patient once medically cleared. Left a message to the patient's daughter, Jennifer , and the patient's son, Cheng .
--- NOTE | 2016-07-29 16:43 | NUR ---
PER DR. MUNOZ "SPLIT MORNING (0900) 2.5MG ZYPREXA DOSE INTO 2 DOSES OF 1.25MG AT BREAKFAST AND LUNCH." PUT IN ORDER FOR 1.25 MG ZYPREXA AT [address] MUNOZ "LEAVE 2.5MG ZYPREXA AT NIGHT. CALLED THE DR'S OFFICE 2 TIMES TO CLARIFY WHAT TIME "AT NIGHT" WANTS NURSE TO ADMINISTER 2.5MG DOSE, AND IF DR. MUNOZ STILL WANTS 1.25MG ZYPREXA PRN HS OR D/C IT.
--- NOTE | 2016-07-29 17:43 | NUR ---
PT REFUSES TO HAVE ORTHOSTATIC B/P TO BE DONE
--- NOTE | 2016-07-29 17:59 | NUR ---
PER DR. MUNOZ "I WILL PUT THE ORDER MYSELF". ADVISED DR. MUNOZ THAT THE PT IS STILL SLEEPING.
--- NOTE | 2016-07-29 18:52 | NUR ---
PER DR. MUNOZ "ADVICE NOC SHIFT NURSE IF THE PT IS TOO SEDATED HOLD GABAPENTIN", WILL ADVISE THE NURSE. PT IS SLEEPING IN BED COMFORTABLY. NO S/S OF RESPIRATORY DISTRESS NOTED. IV INTACT/PATENT. NO PAIN NOTED. ALL SAFETY NEEDS ARE MET. PT REMOVES NC. REMINDED THE PT TO KEEP IT ON AT ALL TIMES. 1:1 SITTER FOR SAFETY AT ALL TIMES, CHANGED THE DRESSING ON LEFT ELBOW.
[2016-07-29 20:00] VITALS: BP 134/77
--- NOTE | 2016-07-29 20:10 | NUR ---
pt lethargic et arouses breifly to touch...sitter at bedside...v/s taken...safety maintain...noted my hold gabapentine if pt drowsy/lethargic
[2016-07-29] MEDS: ATORVASTATIN 10 MG TABLET PO SCH (20:16)
[2016-07-29 20:18] VITALS: BP 134/77
[2016-07-29] MEDS: GABAPENTIN 100 MG CAPSULE PO SCH (20:18)
[2016-07-29] MEDS: CEFTRIAXONE 1 G in IV DEXTROSE 5% 50 ML IV SCH (22:16)
[2016-07-30 04:00] VITALS: BP 144/77
[2016-07-30] MEDS: LEVOTHYROXINE SODIUM 88 MCG TABLET PO SCH ×2 (06:15→07:00)
[2016-07-30] MEDS: BLOOD SUGAR DIAGNOSTIC 1 EACH STRIP VI SCH ×4 (06:43→21:22)
--- NOTE | 2016-07-30 07:08 | NUR ---
pt slept all night...refused to take am synthroid...sitter remains at bedside
--- NOTE | 2016-07-30 07:10 | NUR ---
PATIENT RECEIVED IN ROOM RESTING WITH EYES CLOSED IN NO ACUTE DISTRESS. RESPIRATIONS EVEN AND UNLABORED. ON OXYGEN 2L/NC. CONTINUES WITH 1:1 SITTER AT BEDSIDE FOR SAFETY.
[2016-07-30] MEDS: INSULIN REGULAR, HUMAN 300 UNIT/3 ML VIAL SQ PRN ×3 (07:42→17:52)
[2016-07-30] MEDS ORDERED: OLANZAPINE 2.5 MG TABLET PO SCH (09:00)
[2016-07-30] MEDS: INSULIN DETEMIR 300 UNIT/3 ML CARTRIDGE SQ SCH (10:03)
[2016-07-30] MEDS: FAMOTIDINE 20 MG TABLET PO SCH (10:03)
[2016-07-30] MEDS: DOCUSATE SODIUM 100 MG CAPSULE PO SCH ×2 (10:03→17:50)
[2016-07-30] MEDS: OLANZAPINE 2.5 MG TABLET PO SCH ×2 (10:04→17:50)
[2016-07-30] MEDS: Z GUARD REMEDY PASTE 57 GM TUBE TOP SCH ×2 (10:04→21:00)
[2016-07-30] MEDS: METOPROLOL TARTRATE 25 MG TABLET PO SCH ×2 (10:05→21:08)
[2016-07-30] MEDS: CHOLECALCIFEROL 1,000 UNIT TABLET PO SCH (10:09)
[2016-07-30] MEDS: CLOTRIMAZOLE 1% CREAM 30 GM TUBE TOP SCH ×2 (10:21→17:51)
[2016-07-30 10:30] VITALS: BP_SYST 111; BP_SYST 134; BP_SYST 92; BP_DIAS 54; BP_DIAS 58; BP_DIAS 62
[2016-07-30 12:00] VITALS: BP 111/58
[2016-07-30] MEDS: LORAZEPAM 0.5 MG TABLET PO PRN ×2 (13:20→15:51)
[2016-07-30] MEDS ORDERED: OLANZAPINE 10 MG VIAL IM ONE (13:30)
--- NOTE | 2016-07-30 14:00 | NUR ---
PATIENT ANXIOUS AND AGITATED SHOUTING TO CALL HIS GIRLFRIEND WHO WAS NEXT DOOR. UNABLE TO REORIENT. PATIENT AGGRESSIVE STATING, "YOU BETTER LEAVE ME ALONE! I WILL LEAVE IF I WANT TO!" CALLED PLACED TO DR ORTIZ, DETAIL REPORT GIVEN. NEW ORDERS FOR ZYPREXA XI AND ATIVAN IV RECEIVED.
--- NOTE | 2016-07-30 15:00 | NUR ---
PATIENT ALERT AWAKE IN NO ACUTE DISTRESS. STILL CONFUSED BUT MORE CALM AND ABLE TO REDIRECT AT THIS TIME. CONTINUES FIDGETING IN CHAIR.
[2016-07-30 16:00] VITALS: BP 99/56
[2016-07-30] MEDS ORDERED: LORAZEPAM 2 MG/1 ML VIAL IV PRN ×2 (16:00→16:15)
--- NOTE | 2016-07-30 16:00 | NUR ---
PATIENT WITH INCREASED ANXIETY SHOUTING AND UNABLE TO REDIRECT. STATES HIS "SON IS AWAITING FOR HIM AND THAT HE HAS TO DRIVE AND PICK HIM UP." ATIVAN PO PRN GIVEN.
--- NOTE | 2016-07-30 18:32 | NUR ---
PATIENT MORE CALM AND HYPERVERBAL AT THIS TIME, ABLE TO REDIRECT. PATIENT SAT UP FOR SUPPER AND HAD GOOD APPETITE. VSS. DENIED PAIN. RESPIRATIONS EVEN AND UNLABORED. 97% IN ROOM AIR. FIRST STEP MATTRESS AND DVT PUMPS IN PLACE. CONTINUE WITH 1:1 SITTER AT BEDSIDE FOR SAFETY. FAMILY AT BEDSIDE AT THIS TIME.
[2016-07-30] MEDS: GABAPENTIN 100 MG CAPSULE PO SCH (20:53)
[2016-07-30] MEDS: ATORVASTATIN 10 MG TABLET PO SCH (20:54)
[2016-07-30] MEDS: CEFTRIAXONE 1 G in IV DEXTROSE 5% 50 ML IV SCH (21:08)
[2016-07-30] MEDS: INSULIN REGULAR, HUMAN 300 UNITS/3 ML VIAL SQ PRN (21:37)
--- NOTE | 2016-07-30 23:35 | NUR ---
pt given ativan iv push per order at approx 2200...combative, hallucinating, swinging at caregivers, and very disruptive at this time.
[2016-07-31] MEDS: HYDROCODONE/APAP 5-325MG TABLET PO PRN (00:40)
--- NOTE | 2016-07-31 01:19 | NUR ---
pt continues to be very disruptive...climbing out of bed... very hard to manage... called for orders
--- NOTE | 2016-07-31 04:00 | NUR ---
Dr Ochoa returns page...new orders rcvd
[2016-07-31] MEDS: LEVOTHYROXINE SODIUM 88 MCG TABLET PO SCH (06:25)
[2016-07-31 06:54] LABS: BASOPHILS # (AUTO) 0.1 K/uL (0.0-0.2); BASOPHILS % (AUTO) 1.2 % (0.0-2.0); EOSINOPHILS # (AUTO) 0.4 K/uL (0.0-0.7); EOSINOPHILS % (AUTO) 3.7 % (0.0-7.0); HEMATOCRIT 43.5 % (40.0-50.0); HEMOGLOBIN 14.2 g/dL (14.0-18.0); LYMPHOCYTES # (AUTO) 1.8 K/uL (0.8-4.8); MEAN CORPUSCULAR HEMOGLOBIN 30.4 uug (27.0-31.0); MEAN CORPUSCULAR HGB CONC 33 g/dL (32.0-37.0); MEAN CORPUSCULAR VOLUME 93.4 fL (82.0-92.0); MONOCYTES # (AUTO) 0.6 K/uL (0.1-1.30); MONOCYTES % (AUTO) 5.2 % (0.0-11.0); NEUTROPHILS % (AUTO) 74.9 % (38.5-71.5); PLATELET COUNT (AUTO) 346 K/uL (150-450); RED BLOOD CELL COUNT(AUTO) 4.66 MIL/uL (4.70-6.10); RED CELL DISTRIBUTION WIDTH 14.6 % (11.5-14.5)
[2016-07-31 07:02] LABS: ALBUMIN 3.1 g/dL (3.4-5.0); BILIRUBIN,TOTAL 0.4 mg/dL (0.2-1.0); CALCIUM 9.1 mg/dL (8.5-10.1); MAGNESIUM 2.1 mg/dL (1.8-2.4); PHOSPHOROUS 3.2 mg/dL (2.5-4.9); POTASSIUM 4.4 mmol/L (3.5-5.1); TOTAL PROTEIN, SERUM 8.2 g/dL (6.4-8.2)
[2016-07-31 07:03] LABS: WHITE BLOOD COUNT (AUTO) 11.9 K/uL (4.0-11.2)
[2016-07-31] MEDS: BLOOD SUGAR DIAGNOSTIC 1 EACH STRIP VI SCH ×4 (07:08→20:39)
[2016-07-31] MEDS ORDERED: GABAPENTIN 100 MG CAPSULE PO SCH (08:00)
[2016-07-31] MEDS: DOCUSATE SODIUM 100 MG CAPSULE PO SCH ×2 (08:38→16:16)
[2016-07-31] MEDS: METOPROLOL TARTRATE 25 MG TABLET PO SCH ×2 (08:38→20:39)
[2016-07-31] MEDS: CHOLECALCIFEROL 1,000 UNIT TABLET PO SCH (08:39)
[2016-07-31] MEDS: FAMOTIDINE 20 MG TABLET PO SCH (08:39)
[2016-07-31] MEDS: OLANZAPINE 2.5 MG TABLET PO SCH ×3 (08:40→16:19)
[2016-07-31] MEDS: Z GUARD REMEDY PASTE 57 GM TUBE TOP SCH ×2 (08:45→20:39)
[2016-07-31] MEDS: INSULIN DETEMIR 300 UNIT/3 ML CARTRIDGE SQ SCH (09:00)
[2016-07-31] MEDS: CLOTRIMAZOLE 1% CREAM 30 GM TUBE TOP SCH ×2 (09:00→16:16)
[2016-07-31] MEDS ORDERED: OLANZAPINE ZYDIS 5 MG TAB.RAPDIS PO PRN (11:00)
[2016-07-31] MEDS: INSULIN REGULAR, HUMAN 300 UNIT/3 ML VIAL SQ PRN (12:28)
[2016-07-31 13:00] VITALS: BP 132/57
[2016-07-31] MEDS ORDERED: [UNRECOGNIZED DRUG - CODE] IV (13:14)
[2016-07-31] MEDS ORDERED: IMIPENEM/CILASTATIN SODIUM 1,000 MG in IV NORMAL SALINE 250 ML IV ONE (13:30)
--- NOTE | 2016-07-31 14:29 | NUR ---
NURSING NOTE D/C ORDER WRITTEN UNABLE TO D/C TODAY TO [facility]. ACCORDING TO THE NURSING AUTOMOTIVE SERVICE CONSULTANT THERE [facility]. THEY ARE UNABLE TO ACCEPT HIM TODAY HE IS A NEW ADMIT AND THEY DO NOT ADMIT NEW PTS ON MONDAY. THEY ARE ABLE TO ACCEPT HIM TOMORROW. D/C SET FOR AM
[2016-07-31] MEDS: LORAZEPAM 2 MG/1 ML VIAL IV PRN ×2 (16:00→21:35)
[2016-07-31] MEDS: MEROPENEM 500 MG in IV NORMAL SALINE 50 ML IV SCH (16:01)
--- NOTE | 2016-07-31 17:00 | NUR ---
NURSING NOTE ORTHOSTATIC BP LYING 129/91, SITTING 142/91 UNABLE TO DO STANDING.
[2016-07-31 17:03] VITALS: BP 129/56
[2016-07-31 19:30] VITALS: BP 137/59
--- NOTE | 2016-07-31 20:00 | NUR ---
PATIENT AWAKE IN BED. ALERT TO SELF ONLY. VERY CONFUSED AND DISORIENTED. 1:1 SITTER AT BEDSIDE FOR SAFETY. NO S/S OF PAIN OR DISCOMFORT. NO RESP. DISTRESS NOTED. ON O2 2L NC SATING 97%. VSS. BED ALARM ON. CALL LIGHT IN REACH. ALL NEEDS ATTENDED. WILL CONTINUE TO MONITOR.
[2016-07-31] MEDS: ATORVASTATIN 10 MG TABLET PO SCH (20:38)
[2016-07-31] MEDS: DIVALPROEX SPRINKLE 125 MG CAP.SPRINK PO SCH (20:38)
[2016-07-31] MEDS: INSULIN REGULAR, HUMAN 300 UNITS/3 ML VIAL SQ PRN (20:40)
--- NOTE | 2016-07-31 21:35 | NUR ---
PATIENT AWAKE IN BED. VERY RESTLESS AND AGITATED. PATIENT IS VERY CONFUSED. UNABLE TO RE-DIRECT DUE TO MENTAL STATUS. SITTER AT BEDSIDE FOR SAFETY. VSS. NEW IV HEPLOCK STARTED TO LEFT FA #20 GAUGE. PATIENT GIVEN ATIVAN 0.5MG IV PER RN. CONTINUED ON O2 ORDERED. BED ALARM ON. CALL LIGHT IN REACH. ALL NEEDS ATTENDED. WILL CONTINUE TO MONITOR.
[2016-08-01] MEDS: MEROPENEM 500 MG in IV NORMAL SALINE 50 ML IV SCH ×2 (03:05→16:00)
[2016-08-01 05:00] VITALS: BP 113/71
[2016-08-01] MEDS: LORAZEPAM 2 MG/1 ML VIAL IV PRN (06:15)
[2016-08-01] MEDS: LEVOTHYROXINE SODIUM 88 MCG TABLET PO SCH (06:17)
--- NOTE | 2016-08-01 06:17 | NUR ---
PATIENT AWAKE IN BED. VERY CONFUSED, AGITATED AND COMBATIVE WITH STAFF. PATIENT GIVEN ATIVAN 0.5MG IV PER RN. VSS. UNABLE TO GIVE SYNTHROID AT THIS TIME. SITTER AT BEDSIDE. WILL CONTINUE TO MONITOR. ALL NEEDS ATTENDED. WILL CONTINUE TO MONITOR.
[2016-08-01] MEDS: BLOOD SUGAR DIAGNOSTIC 1 EACH STRIP VI SCH ×3 (06:33→16:40)
[2016-08-01] MEDS: FAMOTIDINE 20 MG TABLET PO SCH (08:13)
[2016-08-01] MEDS: CHOLECALCIFEROL 1,000 UNIT TABLET PO SCH (08:13)
[2016-08-01] MEDS: DIVALPROEX SPRINKLE 125 MG CAP.SPRINK PO SCH (08:13)
[2016-08-01] MEDS: OLANZAPINE 2.5 MG TABLET PO SCH ×2 (08:13→09:00)
[2016-08-01] MEDS: DOCUSATE SODIUM 100 MG CAPSULE PO SCH ×2 (08:13→17:00)
[2016-08-01] MEDS: INSULIN REGULAR, HUMAN 300 UNIT/3 ML VIAL SQ PRN (08:15)
[2016-08-01] MEDS: Z GUARD REMEDY PASTE 57 GM TUBE TOP SCH (08:16)
[2016-08-01] MEDS: METOPROLOL TARTRATE 25 MG TABLET PO SCH (08:16)
[2016-08-01] MEDS: CLOTRIMAZOLE 1% CREAM 30 GM TUBE TOP SCH ×2 (08:17→17:11)
[2016-08-01 08:45] VITALS: BP 138/68
--- NOTE | 2016-08-01 09:00 | NUR ---
SCANNED AND CRUSHED PT MEDS HOWEVER PT TO SEDATED SO DID NOT ADMINISTER ZYPREXA. MEDICATION WAS ALREADY CRUSHED, SO WAS WASTED IN SHARPS CONTAINER. WILL CONTINUE TO MONITOR PT
[2016-08-01] MEDS: INSULIN DETEMIR 300 UNIT/3 ML CARTRIDGE SQ SCH (10:00)
--- NOTE | 2016-08-01 10:00 | NUR ---
PT BS 162, 4 UNITS INSULIN GIVEN, LEVIMER HELD DUE TO PT SLEEPING AND NOT WANTING TO WAKE UP AND EAT. ATIVAN WAS GIVEN PER SECURITIES UNDERWRITER AT 0615 AND PT TO SLEEPY TO EAT.
[2016-08-01 11:52] VITALS: BP 130/61
[2016-08-01] MEDS ORDERED: OLANZAPINE ZYDIS 5 MG TAB.RAPDIS PO PRN (12:15)
--- NOTE | 2016-08-01 12:19 | NUR ---
PT PLACED ON CONTACT ISOLATION
[2016-08-01 15:51] VITALS: BP 130/67
[2016-08-01] MEDS ORDERED: OLANZAPINE 2.5 MG TABLET PO SCH (17:00)
--- NOTE | 2016-08-01 17:35 | NUR ---
PT SLEEPING IN BED, AROUSABLE TO TOUCH HOWEVER DOES NOT STAY AWAKE LONG ENOUGH TO TAKE MEDICATIONS. UNABLE TO GIVE MEDS DUE TO RISK OF ASPIRATION VS STABLE AND BS 111.
--- NOTE | 2016-08-01 18:59 | NUR ---
DISCHARGE PROTOCOL FOLLOWED, PT CONTINUING CARE AT [facility]. IV INTACT AND PATENT. REPORT CALLED TO FACILITY, AMBULANCE TO BOTTLE HOP NEXT SHIFT. PT SLEEPING IN BED, VS STABLE, NO SIGNS OF ACUTE DISTRESS.
--- NOTE | 2016-08-01 20:00 | NUR ---
RECEIVED REPORT FROM NURSE THAT PATIENT IS READY TO BE PICKED-UP AT TRANSPORTED TO [facility]. PATIENT IS ASLEEP IN BED. EASILY AROUSABLE. VSS. BED ALARM ON. WILL CONTINUE TO MONITOR. Addendum: 08/01/16 at 2018 by FELIPE BLUM LVN PICKED-UP AND
--- NOTE | 2016-08-01 20:10 | NUR ---
[facility]T TRANSPORT AT BEDSIDE TO PICK-UP PATIENT. VSS. REPORT GIVEN TO EMT'S.
--- NOTE | 2016-08-01 20:15 | NUR ---
PATIENT LEFT IN STABLE CONDITION.
== END 2016-08-01 20:15 | DRG 689 ==
LOC: MED 22:31
PROVIDERS: ADMIT Internal Medicine; ATTEND Internal Medicine
DX: N39.0 Urinary tract infection, site not specified (principal); G93.40 Encephalopathy, unspecified; N17.9 Acute kidney failure, unspecified; I50.32 Chronic diastolic (congestive) heart failure; N25.81 Secondary hyperparathyroidism of renal origin; I13.0 Hypertensive heart and chronic kidney disease with heart failure and stage 1 through stage 4 chronic kidney disease, or unspecified chronic kidney disease; E11.22 Type 2 diabetes mellitus with diabetic chronic kidney disease; E03.9 Hypothyroidism, unspecified; F01.50 Vascular dementia, unspecified severity, without behavioral disturbance, psychotic disturbance, mood disturbance, and anxiety; N18.9 Chronic kidney disease, unspecified; M85.80 Other specified disorders of bone density and structure, unspecified site; I25.10 Atherosclerotic heart disease of native coronary artery without angina pectoris; F29 Unspecified psychosis not due to a substance or known physiological condition; B96.20 Unspecified Escherichia coli [E. coli] as the cause of diseases classified elsewhere; Z16.12 Extended spectrum beta lactamase (ESBL) resistance; D64.9 Anemia, unspecified; J44.9 Chronic obstructive pulmonary disease, unspecified; Z66 Do not resuscitate
CPT/HCPCS: 36415; 83735; 84100; 85025; 97001; J0696; J1815; J2060; J2185; J2358; J3490; J7050; J7060